=== PATIENT | female | born 1960 | race Two or more races ===

== ENCOUNTER 2025-04-30 01:12 | Inpatient (IN) | payer MEDICAID, MEDICARE ==
[~2025-04-30] VITALS: Ht 165.1 cm; Wt 40.0 kg
[2025-04-30] VITALS (67 sets, daily range): BP systolic 91–158; BP diastolic 66–122; PULSE 82–108; RESP 16–44; TEMP 36.7–37; O2SAT 91–100
[2025-04-30] MEDS ORDERED: ALBUTEROL (0.083%) 2.5MG/3ML NEB HHN ONE (01:30)
[2025-04-30] MEDS: METHYLPREDNISOLONE SOD SUCC 125MG/2ML (ACT-O-VIAL) IV ONE (01:39)
[2025-04-30] MEDS: SODIUM CHLORIDE 0.9% 1,000 ML IV ONE (01:39)
[2025-04-30 02:52] LABS: BASOPHILS % 0.3 % (0.0-2.0); EOSINOPHILS % 0.0 % (0.0-5.0); HEMATOCRIT. 36.2 % (36.0-48.0); HEMOGLOBIN. 11.6 g/dL (12.0-16.0); LYMPHOCYTES % 9.1 % (20.0-50.0); MEAN PLATELET VOLUME 8.8 fl (7.4-10.4); MONOCYTES % 3.5 % (2.0-8.0); NEUTROPHILS % 87.1 % (40.0-76.0); PLATELET 260 x1000/uL (130-400); RED BLOOD CELL COUNT 4.08 mill/uL (4.2-5.4); RED CELL DISTRIBUTION WIDTH 17.3 % (11.6-14.6)
[2025-04-30 03:00] LABS: CREATININE 1.0 mg/dL (0.6-1.0); ETHANOL BLOOD < 10 mg/dL (<10); UREA NITROGEN BLOOD 26 mg/dL (9-23)
[2025-04-30 03:05] LABS: TROPONIN I HIGH SENSITIVITY 1507 ng/L (3.0-34)
[2025-04-30] MEDS: LIDOCAINE HCL 1% 20ML VIAL INFIL SCH (04:00)
[2025-04-30] MEDS: MORPHINE SULFATE 2 MG/ML INJ (NOT FOR IM USE) IV SCH (04:16)
[2025-04-30] MEDS: ACETAMINOPHEN 1000MG/100ML 100 ML IV ONE (05:00)
[2025-04-30 06:08] LABS: BG BASE EXCESS -3.1 mmol/L (-2.0-3.0); BG CARBOXYHEMOGLOBIN 1.0 % (0.5-1.5); BG DEOXYHEMOGLOBIN 0.3 % (0.0-5.0); BG FRACTION INSPIRED OXYGEN 100; BG HCO3 ACT 21.9 mmol/L (21.0-28.0); BG METHEMOGLOBIN 0.2 % (0.5-1.5); BG OXYGEN SATURATION 99.7 % (94.0-98.0); BG OXYHEMOGLOBIN 98.5 % (94.0-98.0); BG PCO2 39.1 mmHg (32.0-45.0); BG PH 7.367 (7.350-7.450); BG PO2 506.2 mmHg (83.0-108.0); BG SAMPLE SITE RIGHT BRACHIAL; BG TOTAL HEMOGLOBIN 10.7 g/dL (12.0-16.0); BG TOTAL RESPIRATORY RATE 20 b/min; BG VENT MODE MASK - BIPAP; BG VENT RATE 18.0 set
[2025-04-30] MEDS: FUROSEMIDE 20MG/2ML VIAL IVP ONE (06:13)
[2025-04-30] MEDS: ASPIRIN 325MG EC TABLET PO ONE (06:13)
[2025-04-30] MEDS ORDERED: IPRATROPIUM/ALBUTEROL 0.5-3(2.5)MG/3ML NEB HHN PRN (09:15)
[2025-04-30] MEDS ORDERED: DOCUSATE SODIUM 100MG CAPSULE PO PRN (09:15)
[2025-04-30] MEDS ORDERED: ACETAMINOPHEN 325MG TABLET PO PRN (09:15)
[2025-04-30] MEDS ORDERED: IPRATROPIUM/ALBUTEROL 0.5-3(2.5)MG/3ML NEB HHN SCH (09:15)
[2025-04-30] MEDS ORDERED: FUROSEMIDE 40MG/4ML VIAL IVP SCH (09:15)
[2025-04-30] MEDS ORDERED: ONDANSETRON HCL 4MG/2ML INJ IV PRN (09:15)
[2025-04-30] MEDS ORDERED: HEPARIN BOLUS PRN aPTT <30 IV (10:00)
[2025-04-30] MEDS: FUROSEMIDE 40MG/4ML VIAL IVP SCH (10:15)
[2025-04-30] MEDS: CLONIDINE 0.1MG TABLET PO PRN (10:16)
[2025-04-30] MEDS: ASPIRIN 81MG EC TABLET PO SCH (10:16)
[2025-04-30] MEDS: PANTOPRAZOLE SODIUM 40 MG/VIAL IV SCH (10:16)
[2025-04-30] MEDS: METOPROLOL TARTRATE 5MG/5ML VIAL IV ONE (10:17)
[2025-04-30] MEDS: PIPERACILLIN/TAZO 3.375G/50ML 50 ML IV SCH (10:19)
[2025-04-30 12:04] LABS: INR 1.0
[2025-04-30 12:06] LABS: INR 1.0
[2025-04-30 12:11] LABS: CREATINE KINASE MB FRACTION 15.1 ng/mL (0.5-3.6)
[2025-04-30 12:13] LABS: LDL CHOLESTEROL 100 mg/dL (5-100); TRIGLYCERIDE 111 mg/dL (0-150)
[2025-04-30 12:14] LABS: ASPARTATE AMINOTRANSFERASE 84 IU/L (<34)
[2025-04-30 12:15] LABS: BILIRUBIN DIRECT 0.2 mg/dL (<=3.0); BILIRUBIN TOTAL 0.7 mg/dL (0.1-1.0); PHOSPHORUS 4.1 mg/dL (2.5-4.9); PROTEIN TOTAL 6.8 g/dL (6.0-8.3)
[2025-04-30 12:16] LABS: T4 FREE 1.16 ng/dL (0.89-1.76)
[2025-04-30] MEDS: BUDESONIDE 0.5MG/2ML NEB HHN SCH (12:27)
[2025-04-30] MEDS: IPRATROPIUM/ALBUTEROL 0.5-3(2.5)MG/3ML NEB HHN SCH (12:28)
[2025-04-30] MEDS: HEPARIN 60 UNITS/KG BOLUS IV SCH (12:31)
[2025-04-30] MEDS: HYDROCODONE/ACETAMINOPHEN 5/325MG TABLET PO PRN ×2 (12:32→17:04)
[2025-04-30] MEDS: HEPARIN 25,000 UNITS PREMIX 250 ML IV PRN (12:39)
[2025-04-30] MEDS: MORPHINE SULFATE 2 MG/ML INJ (NOT FOR IM USE) IV PRN (16:40)
[2025-04-30] MEDS: MONTELUKAST SODIUM 10MG TABLET PO SCH (17:09)
[2025-04-30] MEDS: HEPARIN BOLUS PRN aPTT 30-44 IV (19:48)
[2025-04-30 20:26] LABS: TROPONIN I HIGH SENSITIVITY 1844 ng/L (3.0-34)
[2025-04-30] MEDS: METOPROLOL TARTRATE 50MG TABLET PO SCH (21:00)
[2025-04-30 22:27] LABS: TROPONIN I HIGH SENSITIVITY 1629 ng/L (3.0-34)
[2025-05-01] VITALS (90 sets, daily range): BP systolic 82–144; BP diastolic 62–101; PULSE 68–100; RESP 14–34; TEMP 36.1–37.2; O2SAT 92–100
[2025-05-01 05:28] LABS: BASOPHILS % 0.4 % (0.0-2.0); EOSINOPHILS % 0.0 % (0.0-5.0); HEMATOCRIT. 29.5 % (36.0-48.0); HEMOGLOBIN. 9.7 g/dL (12.0-16.0); LYMPHOCYTES % 11.1 % (20.0-50.0); MEAN PLATELET VOLUME 9.3 fl (7.4-10.4); MONOCYTES % 11.2 % (2.0-8.0); NEUTROPHILS % 77.3 % (40.0-76.0); PLATELET 177 x1000/uL (130-400); RED BLOOD CELL COUNT 3.32 mill/uL (4.2-5.4); RED CELL DISTRIBUTION WIDTH 16.9 % (11.6-14.6)
[2025-05-01 05:49] LABS: CREATININE 1.2 mg/dL (0.6-1.0); UREA NITROGEN BLOOD 33 mg/dL (9-23)
[2025-05-01 05:51] LABS: ASPARTATE AMINOTRANSFERASE 50 IU/L (<34); BILIRUBIN DIRECT 0.2 mg/dL (<=3.0); PHOSPHORUS 3.5 mg/dL (2.5-4.9)
[2025-05-01 05:52] LABS: BILIRUBIN TOTAL 0.5 mg/dL (0.1-1.0); PROTEIN TOTAL 6.6 g/dL (6.0-8.3)
[2025-05-01] MEDS: POTASSIUM CHLORIDE 20MEQ/PACKET PO NR (11:42)
[2025-05-01] MEDS: ENOXAPARIN 30MG/0.3ML SYR SUBCUT SCH (13:44)
[2025-05-02] VITALS (16 sets, daily range): BP systolic 101–120; BP diastolic 64–90; PULSE 73–94; RESP 11–27; TEMP 36.1–36.7; O2SAT 95–100
[2025-05-02] MEDS: ACETAMINOPHEN 325MG TABLET PO PRN (07:26)
[2025-05-02 07:46] LABS: PLATELET 184 x1000/uL (130-400); RED BLOOD CELL COUNT 3.41 mill/uL (4.2-5.4); RED CELL DISTRIBUTION WIDTH 17.2 % (11.6-14.6)
[2025-05-02 08:12] LABS: CREATININE 1.2 mg/dL (0.6-1.0); UREA NITROGEN BLOOD 36.0 mg/dL (9-23)
[2025-05-02] MEDS: MORPHINE SULFATE 2 MG/ML INJ (NOT FOR IM USE) IV SCH (18:48)
[2025-05-03] VITALS (16 sets, daily range): BP systolic 81–130; BP diastolic 29–97; PULSE 71–95; RESP 11–25; TEMP 36.4–37.1; O2SAT 90–99
[2025-05-03 05:31] LABS: CREATININE 1.2 mg/dL (0.6-1.0); UREA NITROGEN BLOOD 35.0 mg/dL (9-23)
[2025-05-03 06:33] LABS: BASOPHILS % 0.7 % (0.0-2.0); EOSINOPHILS % 0.5 % (0.0-5.0); HEMATOCRIT. 31.4 % (36.0-48.0); HEMOGLOBIN. 10.2 g/dL (12.0-16.0); LYMPHOCYTES % 10.6 % (20.0-50.0); MEAN PLATELET VOLUME 9.2 fl (7.4-10.4); MONOCYTES % 13.0 % (2.0-8.0); NEUTROPHILS % 75.2 % (40.0-76.0); PLATELET 217 x1000/uL (130-400); RED BLOOD CELL COUNT 3.52 mill/uL (4.2-5.4); RED CELL DISTRIBUTION WIDTH 16.8 % (11.6-14.6)
[2025-05-03] MEDS: FAMOTIDINE 20MG TABLET PO SCH (08:03)
[2025-05-03] MEDS: LIDOCAINE HCL 1% 10 MG/ML 10ML VIAL INJ NR (13:48)
[2025-05-03] MEDS: MIDAZOLAM HCL 2 MG/2 ML VIAL IV NR (13:48)
[2025-05-03] MEDS: NALOXONE HCL 0.4MG/ML VIAL IV PRN (15:17)
[2025-05-04] VITALS (18 sets, daily range): BP systolic 109–143; BP diastolic 88–101; PULSE 67–101; RESP 13–23; TEMP 36.2–36.6; O2SAT 93–100
[2025-05-04 05:33] LABS: CREATININE 1.1 mg/dL (0.6-1.0)
[2025-05-04 05:34] LABS: UREA NITROGEN BLOOD 33.0 mg/dL (9-23)
[2025-05-04 06:35] LABS: BASOPHILS % 0.5 % (0.0-2.0); EOSINOPHILS % 1.9 % (0.0-5.0); HEMATOCRIT. 33.1 % (36.0-48.0); HEMOGLOBIN. 10.7 g/dL (12.0-16.0); LYMPHOCYTES % 14.8 % (20.0-50.0); MEAN PLATELET VOLUME 8.9 fl (7.4-10.4); MONOCYTES % 13.1 % (2.0-8.0); NEUTROPHILS % 69.7 % (40.0-76.0); PLATELET 261 x1000/uL (130-400); RED BLOOD CELL COUNT 3.73 mill/uL (4.2-5.4); RED CELL DISTRIBUTION WIDTH 16.3 % (11.6-14.6)
[2025-05-04] MEDS: ENOXAPARIN 40MG/0.4ML SYR SUBCUT SCH (09:20)
[2025-05-04] MEDS: HYDROCODONE/ACETAMINOPHEN 10/325MG TABLET PO PRN (18:01)
[2025-05-05] VITALS (15 sets, daily range): BP systolic 99–141; BP diastolic 54–90; PULSE 74–89; RESP 10–20; TEMP 36–37; O2SAT 71–99
[2025-05-05] MEDS: IPRATROPIUM BROMIDE (0.02%) 0.5MG/2.5ML NEB HHN ONE (04:18)
[2025-05-05 06:53] LABS: CREATININE 1.2 mg/dL (0.6-1.0)
[2025-05-05 06:54] LABS: UREA NITROGEN BLOOD 40.0 mg/dL (9-23)
[2025-05-05] MEDS: FUROSEMIDE 20MG/2ML VIAL IVP SCH (07:09)
[2025-05-05 07:18] LABS: HEMATOCRIT. 30.9 % (36.0-48.0); HEMOGLOBIN. 10.0 g/dL (12.0-16.0); MEAN PLATELET VOLUME 8.5 fl (7.4-10.4); PLATELET 276 x1000/uL (130-400); RED BLOOD CELL COUNT 3.48 mill/uL (4.2-5.4); RED CELL DISTRIBUTION WIDTH 16.1 % (11.6-14.6)
[2025-05-05 13:14] LABS: BAND% 1.0 % (1.0-6.0); LYMPHOCYTES % MANUAL 19.0 % (20.0-60.0); MONOCYTES % MANUAL 10.0 % (2.0-8.0); NEUTROPHILS % MANUAL 70.0 % (45.0-75.0); PLATELET ESTIMATE NORMAL
[2025-05-05 14:57] LABS: BG BASE EXCESS 15.1 mmol/L (-2.0-3.0); BG CARBOXYHEMOGLOBIN 0.8 % (0.5-1.5); BG DEOXYHEMOGLOBIN 12.6 % (0.0-5.0); BG FRACTION INSPIRED OXYGEN 21; BG HCO3 ACT 40.5 mmol/L (21.0-28.0); BG METHEMOGLOBIN 0.0 % (0.5-1.5); BG OXYGEN SATURATION 87.3 % (94.0-98.0); BG OXYHEMOGLOBIN 86.6 % (94.0-98.0); BG PCO2 52.1 mmHg (32.0-45.0); BG PH 7.508 (7.350-7.450); BG PO2 53.2 mmHg (83.0-108.0); BG SAMPLE SITE RIGHT RADIAL; BG TOTAL HEMOGLOBIN 13.3 g/dL (12.0-16.0); BG VENT MODE ROOM AIR
[2025-05-05] MEDS ORDERED: CEFEPIME 1GM IN DEXT 5% 50ML IV SCH (16:30)
[2025-05-05] MEDS: CEFEPIME 1GM/50ML 50 ML IV SCH (18:02)
[2025-05-06] VITALS (12 sets, daily range): BP systolic 97–121; BP diastolic 67–93; PULSE 69–87; RESP 13–20; TEMP 36.3–36.7; O2SAT 92–100
[2025-05-06] MEDS: CEFEPIME 2GM/100ML 100 ML IV SCH (17:58)
[2025-05-06] MEDS ORDERED: IPRATROPIUM/ALBUTEROL 0.5-3(2.5)MG/3ML NEB HHN PRN (21:45)
[2025-05-07] VITALS (13 sets, daily range): BP systolic 88–118; BP diastolic 57–85; PULSE 70–85; RESP 13–21; TEMP 36.2–37; O2SAT 91–99
[2025-05-08] VITALS (15 sets, daily range): BP systolic 97–121; BP diastolic 68–86; PULSE 78–94; RESP 13–20; TEMP 36.6–36.8; O2SAT 97–100
[2025-05-08 05:18] LABS: CLARITY URINE CLEAR (CLEAR); COLOR URINE YELLOW (YELLOW); GLUCOSE URINE NEGATIVE (NEGATIVE); KETONES URINE NEGATIVE (NEGATIVE); LEUKOCYTE ESTERASE URINE NEGATIVE (NEGATIVE); NITRITE URINE NEGATIVE (NEGATIVE); OCCULT BLOOD URINE NEGATIVE (NEGATIVE); PH URINE 7.0 (4.5-8.0); PROTEIN URINE NEGATIVE (NEGATIVE); SPECIFIC GRAVITY URINE 1.012 (1.005-1.030); UROBILINOGEN URINE 0.2 E.U./dL (0.2-1.0)
[2025-05-08] MEDS: IPRATROPIUM/ALBUTEROL 0.5-3(2.5)MG/3ML NEB HHN SCH (09:08)
[2025-05-08] MEDS: BUDESONIDE 0.5MG/2ML NEB HHN SCH (09:09)
[2025-05-08] MEDS ORDERED: VERAPAMIL HCL 2.5 MG/1 ML 2ML VIAL IV ONE (09:09)
[2025-05-08] MEDS ORDERED: DIPHENHYDRAMINE 50MG/ML VIAL ONE (09:09)
[2025-05-08] MEDS ORDERED: FENTANYL CITRATE/PF 50MCG/ML 2ML VIAL ONE (09:32)
[2025-05-08] MEDS ORDERED: MIDAZOLAM HCL 2 MG/2 ML VIAL ONE (09:32)
[2025-05-08] MEDS ORDERED: ATROPINE SULFATE 1MG/10ML SYR IV PRN (11:30)
[2025-05-08] MEDS ORDERED: ACETAMINOPHEN 325MG TABLET PO PRN (11:30)
[2025-05-08] MEDS: SODIUM CHLORIDE 0.45% 250 ML IV ONE (13:15)
[2025-05-08] MEDS: NITROGLYCERIN 0.4MG TABLET SL SL NR (13:19)
[2025-05-08] MEDS: ISOSORBIDE DINITRATE 10MG TABLET PO SCH (13:30)
[2025-05-08] MEDS: CLOPIDOGREL 75MG TABLET PO NR (14:09)
[2025-05-08 23:04] LABS: TROPONIN I HIGH SENSITIVITY 45 ng/L (3.0-34)
[2025-05-09] VITALS (17 sets, daily range): BP systolic 92–124; BP diastolic 68–86; PULSE 78–107; RESP 14–23; TEMP 36.5–36.9; O2SAT 91–100
[2025-05-09] MEDS: CLOPIDOGREL 75MG TABLET PO SCH (08:24)
[2025-05-09 08:37] LABS: BASOPHILS % 0.5 % (0.0-2.0); EOSINOPHILS % 1.3 % (0.0-5.0); HEMATOCRIT. 27.2 % (36.0-48.0); HEMOGLOBIN. 8.8 g/dL (12.0-16.0); LYMPHOCYTES % 11.2 % (20.0-50.0); MEAN PLATELET VOLUME 7.9 fl (7.4-10.4); MONOCYTES % 14.6 % (2.0-8.0); NEUTROPHILS % 72.4 % (40.0-76.0); PLATELET 348 x1000/uL (130-400); RED BLOOD CELL COUNT 3.06 mill/uL (4.2-5.4); RED CELL DISTRIBUTION WIDTH 15.9 % (11.6-14.6)
[2025-05-09 08:54] LABS: CREATININE 1.2 mg/dL (0.6-1.0); UREA NITROGEN BLOOD 31.0 mg/dL (9-23)
[2025-05-09] MEDS ORDERED: METO-539 PO (10:06)
[2025-05-09] MEDS ORDERED: ISOS10TA2 PO (10:06)
[2025-05-09] MEDS ORDERED: ASPI-1406 PO (10:06)
[2025-05-09] MEDS ORDERED: CLOP-31 PO (10:06)
[2025-05-09] MEDS ORDERED: MONT-46 PO (10:06)
[2025-05-09] MEDS ORDERED: ATOR40TA70 MT (10:09)
== END 2025-05-09 23:00 | disposition home or self-care (01) | DRG 199 ==
LOC: ER 01:12 → EDBEDREQ 05:27 → EDBEDREQTM 05:27 → ENRESERV 06:32 → MICUNO 07:29 → 5EST 05-01 21:37
PROVIDERS: ADMIT Internal Medicine; ATTEND Internal Medicine
PROC: 0W9930Z Drainage of Right Pleural Cavity with Drainage Device, Percutaneous Approach (ICD-10-PCS; 2025-04-30)
PROC: 5A09357 Assistance with Respiratory Ventilation, Less than 24 Consecutive Hours, Continuous Positive Airway Pressure (ICD-10-PCS; 2025-04-30)
PROC: 0W9930Z Drainage of Right Pleural Cavity with Drainage Device, Percutaneous Approach (ICD-10-PCS; 2025-05-03)
PROC: 4A023N7 Measurement of Cardiac Sampling and Pressure, Left Heart, Percutaneous Approach (ICD-10-PCS; principal; 2025-05-08)
PROC: B2111ZZ Fluoroscopy of Multiple Coronary Arteries using Low Osmolar Contrast (ICD-10-PCS; 2025-05-08)
DX: J93.83 Other pneumothorax (principal); I21.4 Non-ST elevation (NSTEMI) myocardial infarction; I50.21 Acute systolic (congestive) heart failure; J18.9 Pneumonia, unspecified organism; J96.01 Acute respiratory failure with hypoxia; T79.7XXA Traumatic subcutaneous emphysema, initial encounter; J44.1 Chronic obstructive pulmonary disease with (acute) exacerbation; I95.9 Hypotension, unspecified; E78.5 Hyperlipidemia, unspecified; F40.240 Claustrophobia; I25.10 Atherosclerotic heart disease of native coronary artery without angina pectoris; J43.0 Unilateral pulmonary emphysema [MacLeod's syndrome]; F17.210 Nicotine dependence, cigarettes, uncomplicated; Z71.6 Tobacco abuse counseling; Z99.81 Dependence on supplemental oxygen; X58.XXXA Exposure to other specified factors, initial encounter; Y93.89 Activity, other specified; Y92.89 Other specified places as the place of occurrence of the external cause; Y99.8 Other external cause status
CPT/HCPCS: 36415; 36600; 71045; 71250; 80048; 80061; 80076; 80320; 81003; 82375; 82550; 82553; 82805; 83036; 83735; 83880; 84100; 84145; 84439; 84443; 84480; 84484; 85025; 85027; 85379; 93005; 93308; 93458; 93970; 94070; 94640; 94660; 94664; 99291; A4606; A6261; C1769; C1887; C1893; J0692; J1200; J1644; J1650; J1938; J2003; J2250; J2270; J2312; J2470; J2543; J2919; J3010; J3490; J7030; J7626; G0480; J0131